=== PATIENT | female | born 1995 | race Two or more races ===

== ENCOUNTER 2017-12-10 12:53 | Outpatient (CLI) | payer OTHER ==
--- NOTE | 2017-12-10 17:11 | MRI Report ---
Reason: PARESTHESIA OF SKIN Procedure Date: 12/10/2017 Accession Number: [id number] / [id number] Procedure: MRI - Cervical Spine W/O CPT Code: FULL RESULT: MRI CERVICAL SPINE WITHOUT CONTRAST INDICATION: 22-year-old female. Paresthesias of skin. TECHNIQUE: 1. Sagittal STIR, T1 and T2. 2. Axial T1, T2 and T2* COMPARISON: None. FINDINGS: The coronal localizer demonstrates a mild dextroconvex scoliosis with apex near the cervicothoracic junction. Alignment in the sagittal plane is essentially normal. There is loss of the normal T2 signal from the disks at all levels from C2-C3 to C6-C7 confirming disk degeneration. The C7-T1 and T1-T2 disks appear well hydrated. The cervical disk space heights appear preserved throughout. The marrow signal intensity is unremarkable. Axial images: C2-C3: No disk herniation or spinal stenosis. The neural foramina are widely patent. C3-C4: No disk herniation or spinal stenosis. Small uncovertebral osteophytes. No significant foraminal encroachment. C4-C5: No disk herniation. Mild uncovertebral hypertrophy without associated foraminal encroachment. C5-C6: No disk herniation or spinal stenosis. No significant foraminal narrowing. C6-C7: Tiny, shallow posterior protrusion with minimal mass effect on the thecal sac. No spinal stenosis. No significant foraminal narrowing. C7-T1: No disk herniation or spinal stenosis. The neural foramina are widely patent. The spinal cord appears to have a normal signal intensity throughout. No T2 hyperintense demyelinating plaque is identified. The cerebellar tonsils are low lying and project into the foramen magnum. However, there is no crowding at the foramen magnum and there is no significant descent of either tonsil below the plane of the foramen magnum. No evidence of a Chiari I malformation. No obvious focal lesion is identified in the brainstem or imaged cerebellum. Noted is a mucous retention cyst in the left maxillary sinus. IMPRESSION: 1. There is early, multilevel degenerative disk and uncovertebral change as documented above. No spinal stenosis or significant foraminal narrowing. No evidence of neural impingement. 2. Otherwise unremarkable unenhanced cervical spine MRI. In particular, no evidence of demyelinating disease or other pathology in the cervical spinal cord.
== END 2017-12-10 12:54 | disposition home or self-care (01) ==
LOC: DI 12:53
PROVIDERS: ATTEND General Practice
DX: M50.30 Other cervical disc degeneration, unspecified cervical region (principal)
CPT/HCPCS: 72141